=== PATIENT | male | born 1970 | race Caucasian/White ===

== ENCOUNTER 2019-07-24 16:57 | Inpatient (IN) | payer MEDICAID ==
[~2019-07-24] VITALS: Ht 170.2 cm; Wt 66.7 kg
[2019-07-24 18:50] VITALS: BP 128/73
[2019-07-24] MEDS ORDERED: MELATONIN 5 MG TABLET PO PRN (19:45)
[2019-07-24] MEDS ORDERED: ACETAMINOPHEN 325 MG TABLET PO PRN (19:45)
[2019-07-24 23:08] VITALS: BP 117/79
[2019-07-24] MEDS ORDERED: PRED20 PO (23:35)
[2019-07-25 07:22] LABS: BASOPHILS % (AUTO) 0.3 % (0.0-2.0); EOSINOPHILS % (AUTO) 1.2 % (1.0-6.0); HEMATOCRIT 45.5 % (41-53); HEMOGLOBIN 15.2 g/dL (13.5-17.5); LYMPHOCYTES # (AUTO) 2.4 K/uL (1.0-4.8); LYMPHOCYTES % (AUTO) 22.8 % (22.0-44.0); MEAN CORPUSCULAR HEMOGLOBIN 29.9 pg (26.0-34.0); MEAN CORPUSCULAR HGB CONC 33.4 G/dL (31.0-37.0); MEAN CORPUSCULAR VOLUME 90 fL (80-100); MONOCYTES # (AUTO) 0.9 K/uL (0.1-1.0); MONOCYTES % (AUTO) 8.4 % (2.0-9.0); NEUTROPHILS % (AUTO) 67.3 % (40.0-70.0); PLATELET COUNT (AUTO) 278 K/uL (150-450); RED BLOOD CELL COUNT(AUTO) 5.09 MIL/uL (4.50-5.90); RED CELL DISTRIBUTION WIDTH 14.6 % (11.5-14.5)
[2019-07-25 07:56] LABS: ALANINE AMINOTRANSFERASE 374 U/L (12-78); ALBUMIN 2.5 g/dL (3.4-5.0); ALKALINE PHOSPHATASE 49 U/L (46-116); ANION GAP 9 mmol/L (8-16); ASPARTATE AMINOTRANSFERASE 280 U/L (15-37); BILIRUBIN,TOTAL 0.3 mg/dL (0.1-1.0); CALCIUM, TOTAL 8.4 mg/dL (8.8-10.5); CARBON DIOXIDE 26 mmol/L (22-29); CHLORIDE 103 mmol/L (98-107); CREATININE 0.22 mg/dL (0.60-1.30); GLOMERULAR FILTR. RATE CALC > 60 mL/min (>60); GLUCOSE,RANDOM 115 mg/dL (70-110); POTASSIUM 3.6 mmol/L (3.5-5.1); SODIUM SERUM 138 mmol/L (136-145); TOTAL PROTEIN, SERUM 7.2 g/dL (6.4-8.2); UREA NITROGEN, BLOOD 14 mg/dL (7-18)
[2019-07-25 08:00] VITALS: BP 122/88
[2019-07-25] MEDS: PredniSONE 20 MG TABLET PO SCH (09:37)
[2019-07-25] MEDS: MULTIVITAMINS WITH MINERALS, THERAPEUTIC TABLET PO SCH (09:38)
[2019-07-25] MEDS: ENOXAPARIN SODIUM 40 MG/0.4 ML PF SYRINGE SQ SCH (09:46)
[2019-07-25 15:10] VITALS: BP 132/73
[2019-07-26 00:36] VITALS: BP 121/79
[2019-07-26 07:12] VITALS: BP 122/78
[2019-07-26] MEDS: ENOXAPARIN SODIUM 40 MG/0.4 ML PF SYRINGE SQ SCH (07:54)
[2019-07-26] MEDS: MULTIVITAMINS WITH MINERALS, THERAPEUTIC TABLET PO SCH (07:54)
[2019-07-26] MEDS: PredniSONE 20 MG TABLET PO SCH (07:54)
[2019-07-26 15:30] VITALS: BP 136/90
[2019-07-27 01:12] VITALS: BP 124/70
[2019-07-27 08:04] VITALS: BP 141/89
[2019-07-27] MEDS: ENOXAPARIN SODIUM 40 MG/0.4 ML PF SYRINGE SQ SCH (09:01)
[2019-07-27] MEDS: PredniSONE 20 MG TABLET PO SCH (09:01)
[2019-07-27] MEDS: MULTIVITAMINS WITH MINERALS, THERAPEUTIC TABLET PO SCH (09:01)
[2019-07-27 16:04] VITALS: BP 135/88
[2019-07-27 23:30] VITALS: BP 137/83
[2019-07-28] MEDS ORDERED: MULT-1239 PO (01:58)
[2019-07-28] MEDS: ENOXAPARIN SODIUM 40 MG/0.4 ML PF SYRINGE SQ SCH (08:06)
[2019-07-28] MEDS: MULTIVITAMINS WITH MINERALS, THERAPEUTIC TABLET PO SCH (08:07)
[2019-07-28] MEDS: PredniSONE 20 MG TABLET PO SCH (08:07)
[2019-07-28 10:11] VITALS: BP 140/86
[2019-07-28 15:34] VITALS: BP 146/87
[2019-07-28 15:53] LABS: ALANINE AMINOTRANSFERASE 446 U/L (12-78); ALBUMIN 3.2 g/dL (3.4-5.0); ALKALINE PHOSPHATASE 60 U/L (46-116); ANION GAP 17 mmol/L (8-16); ASPARTATE AMINOTRANSFERASE 372 U/L (15-37); BILIRUBIN,TOTAL 0.6 mg/dL (0.1-1.0); CALCIUM, TOTAL 9.2 mg/dL (8.8-10.5); CARBON DIOXIDE 20 mmol/L (22-29); CHLORIDE 97 mmol/L (98-107); CREATININE 0.48 mg/dL (0.60-1.30); GLOMERULAR FILTR. RATE CALC > 60 mL/min (>60); GLUCOSE,RANDOM 110 mg/dL (70-110); POTASSIUM 4.7 mmol/L (3.5-5.1); SODIUM SERUM 134 mmol/L (136-145); UREA NITROGEN, BLOOD 16 mg/dL (7-18)
[2019-07-28 16:35] LABS: CREATINE KINASE, TOTAL ONLY 3589 U/L (39-308)
[2019-07-28 23:15] VITALS: BP 136/83
[2019-07-29 08:00] VITALS: BP 137/80
[2019-07-29] MEDS: MULTIVITAMINS WITH MINERALS, THERAPEUTIC TABLET PO SCH (08:50)
[2019-07-29] MEDS: PredniSONE 20 MG TABLET PO SCH (08:50)
[2019-07-29] MEDS: ENOXAPARIN SODIUM 40 MG/0.4 ML PF SYRINGE SQ SCH (08:51)
[2019-07-29] MEDS ORDERED: DOCUSATE SODIUM 100 MG CAPSULE PO SCH (09:00)
[2019-07-29 15:15] VITALS: BP 141/86
[2019-07-30 01:00] VITALS: BP 117/66
[2019-07-30] MEDS ORDERED: DOCUSATE SODIUM 100 MG CAPSULE PO PRN (08:00)
[2019-07-30] MEDS: ENOXAPARIN SODIUM 40 MG/0.4 ML PF SYRINGE SQ SCH (08:23)
[2019-07-30] MEDS: PredniSONE 20 MG TABLET PO SCH (08:23)
[2019-07-30] MEDS: MULTIVITAMINS WITH MINERALS, THERAPEUTIC TABLET PO SCH (08:23)
[2019-07-30 08:30] VITALS: BP 153/92
[2019-07-30 16:30] VITALS: BP 147/82
[2019-07-30 23:53] VITALS: BP 125/76
[2019-07-31 07:15] VITALS: BP 128/85
[2019-07-31] MEDS: MULTIVITAMINS WITH MINERALS, THERAPEUTIC TABLET PO SCH (08:22)
[2019-07-31] MEDS: PredniSONE 20 MG TABLET PO SCH (08:22)
[2019-07-31] MEDS: ENOXAPARIN SODIUM 40 MG/0.4 ML PF SYRINGE SQ SCH (08:23)
[2019-07-31] MEDS: FAMOTIDINE 20 MG TABLET PO SCH ×2 (10:08→20:08)
[2019-07-31 15:45] VITALS: BP 130/78
[2019-08-01 03:20] VITALS: BP 121/75
[2019-08-01 07:49] VITALS: BP 138/86
[2019-08-01] MEDS: MULTIVITAMINS WITH MINERALS, THERAPEUTIC TABLET PO SCH (08:28)
[2019-08-01] MEDS: ENOXAPARIN SODIUM 40 MG/0.4 ML PF SYRINGE SQ SCH (08:28)
[2019-08-01] MEDS: FAMOTIDINE 20 MG TABLET PO SCH ×2 (08:28→21:26)
[2019-08-01] MEDS: PredniSONE 20 MG TABLET PO SCH (08:28)
[2019-08-01 18:50] VITALS: BP 144/93
[2019-08-01 20:00] VITALS: BP 143/68
[2019-08-01] MEDS ORDERED: *PATIENT'S OWN MED [ENTER DRUG, DOSE, FREQUENCY IN COMMENTS] CLINICAL ONE (20:00)
[2019-08-01] MEDS: CycloSPORINE,MODIFIED 100 MG CAPSULE PO SCH (21:26)
[2019-08-02 02:30] VITALS: BP 120/79
[2019-08-02 07:12] VITALS: BP 136/93
[2019-08-02] MEDS: MULTIVITAMINS WITH MINERALS, THERAPEUTIC TABLET PO SCH (08:48)
[2019-08-02] MEDS: ENOXAPARIN SODIUM 40 MG/0.4 ML PF SYRINGE SQ SCH (08:48)
[2019-08-02] MEDS: FAMOTIDINE 20 MG TABLET PO SCH ×2 (08:48→20:37)
[2019-08-02] MEDS: PredniSONE 20 MG TABLET PO SCH (08:48)
[2019-08-02] MEDS ORDERED: MORPHINE SULFATE 15 MG IR TABLET PO ONE (09:00)
[2019-08-02] MEDS: CycloSPORINE,MODIFIED 100 MG CAPSULE PO SCH ×2 (09:09→20:37)
[2019-08-02 15:30] VITALS: BP 130/78
[2019-08-03 02:07] VITALS: BP 124/74
[2019-08-03 07:15] VITALS: BP 130/76
[2019-08-03] MEDS: PredniSONE 20 MG TABLET PO SCH (08:08)
[2019-08-03] MEDS: CycloSPORINE,MODIFIED 100 MG CAPSULE PO SCH ×2 (08:08→21:52)
[2019-08-03] MEDS: ENOXAPARIN SODIUM 40 MG/0.4 ML PF SYRINGE SQ SCH (08:08)
[2019-08-03] MEDS: FAMOTIDINE 20 MG TABLET PO SCH ×2 (08:09→21:52)
[2019-08-03] MEDS: MULTIVITAMINS WITH MINERALS, THERAPEUTIC TABLET PO SCH (08:09)
[2019-08-03 15:00] VITALS: BP 135/68
[2019-08-03 23:50] VITALS: BP 131/81
[2019-08-04 07:10] VITALS: BP 136/92
[2019-08-04] MEDS: MULTIVITAMINS WITH MINERALS, THERAPEUTIC TABLET PO SCH (08:41)
[2019-08-04] MEDS: ENOXAPARIN SODIUM 40 MG/0.4 ML PF SYRINGE SQ SCH (08:41)
[2019-08-04] MEDS: FAMOTIDINE 20 MG TABLET PO SCH ×2 (08:41→20:59)
[2019-08-04] MEDS: PredniSONE 20 MG TABLET PO SCH (08:41)
[2019-08-04] MEDS: CycloSPORINE,MODIFIED 100 MG CAPSULE PO SCH ×2 (08:41→20:59)
[2019-08-04 16:12] VITALS: BP 146/81
[2019-08-05 00:04] VITALS: BP 125/84
[2019-08-05 07:15] VITALS: BP 131/89
[2019-08-05] MEDS: ENOXAPARIN SODIUM 40 MG/0.4 ML PF SYRINGE SQ SCH (08:14)
[2019-08-05] MEDS: CycloSPORINE,MODIFIED 100 MG CAPSULE PO SCH ×2 (08:14→19:56)
[2019-08-05] MEDS: FAMOTIDINE 20 MG TABLET PO SCH ×2 (08:14→19:56)
[2019-08-05] MEDS: MULTIVITAMINS WITH MINERALS, THERAPEUTIC TABLET PO SCH (08:14)
[2019-08-05] MEDS: PredniSONE 20 MG TABLET PO SCH (08:14)
[2019-08-05 17:41] VITALS: BP 150/87
[2019-08-05 21:15] VITALS: BP 130/68
[2019-08-06 00:44] VITALS: BP 121/78
[2019-08-06 07:08] VITALS: BP 146/83
[2019-08-06] MEDS: PredniSONE 20 MG TABLET PO SCH (08:09)
[2019-08-06] MEDS: FAMOTIDINE 20 MG TABLET PO SCH ×2 (08:09→20:21)
[2019-08-06] MEDS: MULTIVITAMINS WITH MINERALS, THERAPEUTIC TABLET PO SCH (08:09)
[2019-08-06] MEDS: ENOXAPARIN SODIUM 40 MG/0.4 ML PF SYRINGE SQ SCH ×2 (08:10→09:45)
[2019-08-06] MEDS: CycloSPORINE,MODIFIED 100 MG CAPSULE PO SCH ×2 (08:10→20:21)
[2019-08-06 10:33] LABS: BASOPHILS % (AUTO) 0.4 % (0.0-2.0); EOSINOPHILS % (AUTO) 0.3 % (1.0-6.0); HEMATOCRIT 48.3 % (41-53); HEMOGLOBIN 16.1 g/dL (13.5-17.5); LYMPHOCYTES % (AUTO) 12.7 % (22.0-44.0); MEAN CORPUSCULAR HEMOGLOBIN 30.2 pg (26.0-34.0); MEAN CORPUSCULAR HGB CONC 33.2 G/dL (31.0-37.0); MEAN CORPUSCULAR VOLUME 91 fL (80-100); MONOCYTES # (AUTO) 0.9 K/uL (0.1-1.0); NEUTROPHILS # (AUTO) 12.5 K/uL (1.8-7.7); NEUTROPHILS % (AUTO) 80.6 % (40.0-70.0); PLATELET COUNT (AUTO) 365 K/uL (150-450); RED BLOOD CELL COUNT(AUTO) 5.33 MIL/uL (4.50-5.90); RED CELL DISTRIBUTION WIDTH 14.9 % (11.5-14.5)
[2019-08-06 11:33] LABS: ALANINE AMINOTRANSFERASE 365 U/L (12-78); ALBUMIN 3.4 g/dL (3.4-5.0); ALKALINE PHOSPHATASE 55 U/L (46-116); ANION GAP 4 mmol/L (8-16); ASPARTATE AMINOTRANSFERASE 222 U/L (15-37); BILIRUBIN,TOTAL 0.4 mg/dL (0.1-1.0); CALCIUM, TOTAL 9.2 mg/dL (8.8-10.5); CARBON DIOXIDE 32 mmol/L (22-29); CHLORIDE 98 mmol/L (98-107); CREATININE 0.39 mg/dL (0.60-1.30); GLOMERULAR FILTR. RATE CALC > 60 mL/min (>60); GLUCOSE,RANDOM 98 mg/dL (70-110); POTASSIUM 4.8 mmol/L (3.5-5.1); SODIUM SERUM 134 mmol/L (136-145); TOTAL PROTEIN, SERUM 7.8 g/dL (6.4-8.2); UREA NITROGEN, BLOOD 14 mg/dL (7-18)
[2019-08-06 11:43] LABS: CREATINE KINASE, TOTAL ONLY 2903 U/L (39-308)
[2019-08-06 15:00] VITALS: BP 138/73
[2019-08-06 23:30] VITALS: BP 147/86
[2019-08-07] MEDS: ENOXAPARIN SODIUM 40 MG/0.4 ML PF SYRINGE SQ SCH (07:11)
[2019-08-07] MEDS: FAMOTIDINE 20 MG TABLET PO SCH ×2 (07:11→20:38)
[2019-08-07] MEDS: CycloSPORINE,MODIFIED 100 MG CAPSULE PO SCH ×2 (07:11→20:38)
[2019-08-07] MEDS: PredniSONE 20 MG TABLET PO SCH (07:11)
[2019-08-07] MEDS: MULTIVITAMINS WITH MINERALS, THERAPEUTIC TABLET PO SCH (07:11)
[2019-08-07 07:55] VITALS: BP 144/104
[2019-08-07 19:49] VITALS: BP 138/85
[2019-08-08] VITALS: BP 121/72
[2019-08-08 08:23] VITALS: BP 132/89
[2019-08-08] MEDS: MULTIVITAMINS WITH MINERALS, THERAPEUTIC TABLET PO SCH (09:17)
[2019-08-08] MEDS: CycloSPORINE,MODIFIED 100 MG CAPSULE PO SCH ×2 (09:18→20:12)
[2019-08-08] MEDS: PredniSONE 20 MG TABLET PO SCH (09:18)
[2019-08-08] MEDS: FAMOTIDINE 20 MG TABLET PO SCH ×2 (09:18→20:12)
[2019-08-08] MEDS: ENOXAPARIN SODIUM 40 MG/0.4 ML PF SYRINGE SQ SCH (09:18)
[2019-08-08] MEDS ORDERED: TUBERCULIN, PURIFIED PROTEIN DERIVATIVE 5 TU/0.1 ML SYRINGE ID ONE (12:15)
[2019-08-08 18:39] VITALS: BP 139/87
[2019-08-09] VITALS: BP 130/78
[2019-08-09 08:23] VITALS: BP 130/92
[2019-08-09] MEDS: PredniSONE 20 MG TABLET PO SCH (08:47)
[2019-08-09] MEDS: FAMOTIDINE 20 MG TABLET PO SCH ×2 (08:47→22:12)
[2019-08-09] MEDS: ENOXAPARIN SODIUM 40 MG/0.4 ML PF SYRINGE SQ SCH (08:47)
[2019-08-09] MEDS: MULTIVITAMINS WITH MINERALS, THERAPEUTIC TABLET PO SCH (08:47)
[2019-08-09] MEDS: CycloSPORINE,MODIFIED 100 MG CAPSULE PO SCH ×2 (08:47→22:12)
[2019-08-09 15:35] VITALS: BP 146/89
[2019-08-10] VITALS: BP_SYST 145; BP_SYST 150; BP_DIAS 79
[2019-08-10 01:45] VITALS: BP 127/81
[2019-08-10 07:01] VITALS: BP 126/87
[2019-08-10] MEDS: MULTIVITAMINS WITH MINERALS, THERAPEUTIC TABLET PO SCH (08:36)
[2019-08-10] MEDS: FAMOTIDINE 20 MG TABLET PO SCH ×2 (08:36→20:25)
[2019-08-10] MEDS: CycloSPORINE,MODIFIED 100 MG CAPSULE PO SCH ×2 (08:36→20:25)
[2019-08-10] MEDS: ENOXAPARIN SODIUM 40 MG/0.4 ML PF SYRINGE SQ SCH (08:36)
[2019-08-10] MEDS: PredniSONE 20 MG TABLET PO SCH (08:36)
[2019-08-10 15:15] VITALS: BP 137/89
[2019-08-11 01:00] VITALS: BP 129/84
[2019-08-11 08:00] VITALS: BP 147/79
[2019-08-11] MEDS: ENOXAPARIN SODIUM 40 MG/0.4 ML PF SYRINGE SQ SCH (09:55)
[2019-08-11] MEDS: PredniSONE 20 MG TABLET PO SCH (09:55)
[2019-08-11] MEDS: FAMOTIDINE 20 MG TABLET PO SCH ×2 (09:55→20:05)
[2019-08-11] MEDS: MULTIVITAMINS WITH MINERALS, THERAPEUTIC TABLET PO SCH (09:55)
[2019-08-11] MEDS: CycloSPORINE,MODIFIED 100 MG CAPSULE PO SCH ×2 (09:55→20:05)
[2019-08-11 16:00] VITALS: BP 114/98
[2019-08-11 23:00] VITALS: BP 135/77
[2019-08-12] MEDS ORDERED: CYCL100C6 PO (08:06)
[2019-08-12] MEDS ORDERED: FAMO20 PO (08:06)
[2019-08-12 09:17] VITALS: BP 129/88
[2019-08-12] MEDS: PredniSONE 20 MG TABLET PO SCH (09:20)
[2019-08-12] MEDS: CycloSPORINE,MODIFIED 100 MG CAPSULE PO SCH ×2 (09:20→21:04)
[2019-08-12] MEDS: FAMOTIDINE 20 MG TABLET PO SCH ×2 (09:20→21:04)
[2019-08-12] MEDS: MULTIVITAMINS WITH MINERALS, THERAPEUTIC TABLET PO SCH (09:20)
[2019-08-12] MEDS: ENOXAPARIN SODIUM 40 MG/0.4 ML PF SYRINGE SQ SCH (10:57)
[2019-08-12 15:26] VITALS: BP 151/90
[2019-08-13 01:37] VITALS: BP 132/85
[2019-08-13 08:00] VITALS: BP 140/100
[2019-08-13 08:00] LABS: BASOPHILS % (AUTO) 0.4 % (0.0-2.0); EOSINOPHILS % (AUTO) 0.7 % (1.0-6.0); HEMATOCRIT 43.1 % (41-53); HEMOGLOBIN 14.6 g/dL (13.5-17.5); LYMPHOCYTES # (AUTO) 2.4 K/uL (1.0-4.8); LYMPHOCYTES % (AUTO) 21.6 % (22.0-44.0); MEAN CORPUSCULAR HEMOGLOBIN 30.4 pg (26.0-34.0); MEAN CORPUSCULAR HGB CONC 33.9 G/dL (31.0-37.0); MEAN CORPUSCULAR VOLUME 90 fL (80-100); MONOCYTES # (AUTO) 0.9 K/uL (0.1-1.0); MONOCYTES % (AUTO) 8.4 % (2.0-9.0); NEUTROPHILS # (AUTO) 7.7 K/uL (1.8-7.7); NEUTROPHILS % (AUTO) 68.9 % (40.0-70.0); PLATELET COUNT (AUTO) 269 K/uL (150-450); RED CELL DISTRIBUTION WIDTH 14.4 % (11.5-14.5)
[2019-08-13 08:35] LABS: ALANINE AMINOTRANSFERASE 259 U/L (12-78); ALBUMIN 3.1 g/dL (3.4-5.0); ALKALINE PHOSPHATASE 49 U/L (46-116); ANION GAP 10 mmol/L (8-16); ASPARTATE AMINOTRANSFERASE 145 U/L (15-37); BILIRUBIN,TOTAL 0.3 mg/dL (0.1-1.0); CALCIUM, TOTAL 8.7 mg/dL (8.8-10.5); CARBON DIOXIDE 26 mmol/L (22-29); CHLORIDE 104 mmol/L (98-107); CREATININE 0.34 mg/dL (0.60-1.30); GLOMERULAR FILTR. RATE CALC > 60 mL/min (>60); GLUCOSE,RANDOM 95 mg/dL (70-110); POTASSIUM 3.5 mmol/L (3.5-5.1); SODIUM SERUM 140 mmol/L (136-145); TOTAL PROTEIN, SERUM 6.7 g/dL (6.4-8.2); UREA NITROGEN, BLOOD 15 mg/dL (7-18)
[2019-08-13] MEDS: FAMOTIDINE 20 MG TABLET PO SCH ×2 (09:41→20:26)
[2019-08-13] MEDS: MULTIVITAMINS WITH MINERALS, THERAPEUTIC TABLET PO SCH (09:41)
[2019-08-13] MEDS: CycloSPORINE,MODIFIED 100 MG CAPSULE PO SCH ×2 (09:41→20:26)
[2019-08-13] MEDS: PredniSONE 20 MG TABLET PO SCH (09:42)
[2019-08-13] MEDS: ENOXAPARIN SODIUM 40 MG/0.4 ML PF SYRINGE SQ SCH (10:05)
[2019-08-13 21:05] VITALS: BP 147/93
[2019-08-13 23:44] VITALS: BP 133/91
[2019-08-14 07:30] VITALS: BP 142/87
[2019-08-14] MEDS: CycloSPORINE,MODIFIED 100 MG CAPSULE PO SCH ×2 (08:25→20:38)
[2019-08-14] MEDS: PredniSONE 20 MG TABLET PO SCH (08:26)
[2019-08-14] MEDS: MULTIVITAMINS WITH MINERALS, THERAPEUTIC TABLET PO SCH (08:26)
[2019-08-14] MEDS: FAMOTIDINE 20 MG TABLET PO SCH ×2 (08:26→20:37)
[2019-08-14] MEDS: ENOXAPARIN SODIUM 40 MG/0.4 ML PF SYRINGE SQ SCH (08:26)
[2019-08-14 17:28] VITALS: BP 151/82
[2019-08-14 20:44] VITALS: BP 139/96
[2019-08-15 00:33] VITALS: BP 127/78
[2019-08-15 07:00] VITALS: BP 138/99
[2019-08-15] MEDS ORDERED: MULT-248 PO (08:43)
[2019-08-15] MEDS: MULTIVITAMINS WITH MINERALS, THERAPEUTIC TABLET PO SCH (09:20)
[2019-08-15] MEDS: PredniSONE 20 MG TABLET PO SCH (09:20)
[2019-08-15] MEDS: ENOXAPARIN SODIUM 40 MG/0.4 ML PF SYRINGE SQ SCH (09:20)
[2019-08-15] MEDS: CycloSPORINE,MODIFIED 100 MG CAPSULE PO SCH (09:20)
[2019-08-15] MEDS: FAMOTIDINE 20 MG TABLET PO SCH (09:20)
[2019-08-15] MEDS ORDERED: ASPI81TA87 PO (11:39)
== END 2019-08-15 13:30 | disposition home health service (06) | DRG 351 ==
LOC: 4E 18:15 → 2WR 07-26 10:07
PROVIDERS: ADMIT Physical Medicine & Rehabilitation; ATTEND Physical Medicine & Rehabilitation
DX: M60.9 Myositis, unspecified (principal); G82.50 Quadriplegia, unspecified; E46 Unspecified protein-calorie malnutrition; R13.10 Dysphagia, unspecified; Z79.52 Long term (current) use of systemic steroids; R26.9 Unspecified abnormalities of gait and mobility
CPT/HCPCS: 80074; 87081; 92507; 92526; 92610; 97110; 97112; 97116; 97163; 97167; 97530; 97535; 99366; J1650; J7502